=== PATIENT | male | born 1960 | race Caucasian/White ===

== ENCOUNTER 2016-04-15 20:44 | Emergency (ER) | payer OTHER ==
[2016-04-15] MEDS ORDERED: PROPARACAINE 0.5% 15 ML OPHT DROP OP ONE (21:00)
[2016-04-15] MEDS ORDERED: FLUORESCEIN SODIUM 1 MG STRIP OP ONE ×2 (21:00→21:16)
[2016-04-15] MEDS ORDERED: OFLOXACIN 0.3% SOLN PREPACK OPHT.BTL TAKEHOME ONE (21:29)
--- NOTE | 2016-04-15 21:29 | EDPHY ---
H & P Time Seen by Provider: 04/15/16 20:59 HPI/ROS: CHIEF COMPLAINT: Right eye injury HISTORY OF PRESENT ILLNESS: 56-year-old male history of PRK surgery approximately [address] Familia Carrasco with walking this evening and impacted a branch. He is complaining of acute right eye pain. No visual acuity changes that he has significant pain with opening of his eye. PHYSICAL EXAM (Prior to examination, patient consented to physical exam, hands were washed and my usual and customary physical exam procedures followed) 1) GENERAL: Well-developed, well-nourished, alert and oriented.Appears uncomfortable guarding right eye 2) HEAD: Normocephalic 3) HEENT: sclera anicteric 4) LUNGS: Breathing comfortably. 5) OCULAR EXAM: Visual Acuity: noted from Nurse's notes., right eye 20/40 after Alcaine instillation patient notes resolution of symptoms Pupils:equal round and reactive to light EOMI Lids: no edema or swelling, upper and lower lids were everted and no foreign bodies were visualized, no areas of increased fluorescein uptake. Skin: no proptosis, no periorbital erythema or swelling, no vesicles, no pain with extraocular movements. Conjunctivae: not injected, no discharge, negative Laureano test. Cornea: [exam with fluorescein shows area of increased uptake between the 7 in 10 o'clock position of the cornea consistent with abrasion. For comparison purposes the left eye was stained as well and has no areas of increased uptake. Anterior chamber:[normal, no hyphema or hypopyon Smoking Status: Never smoked Constitutional: Initial Vital Signs Temperature (C) 36.5 C 04/15/16 20:51 Heart Rate 66 04/15/16 20:51 Respiratory Rate 20 04/15/16 20:51 Blood Pressure 138/96 H 04/15/16 20:51 O2 Sat (%) 96 04/15/16 20:51 O2 Delivery Mode Room Air Allergies/Adverse Reactions: morphine Allergy (Verified 04/15/16 20:51) Home Medications: Medication Instructions Recorded Lisinopril 04/15/16 Ofloxacin 0.3% [Ocuflox 0.3%] 2 drops EACHEYE QID #1 opht.btl 04/15/16 oxyCODONE/APAP 5/325 [Percocet 1 tab PO Q6 #10 tab 04/15/16 5325] ED Images - Head Eyes Right/Left: 1 - abrasion MDM/Departure - MDM Medications Given: Discontinued Medications Fluorescein Sodium ([id number]) 1 mg OP EDNOW ONE Stop: 04/15/16 21:01 Last Admin: 04/15/16 21:07 Dose: 1 mg Proparacaine HCl (Alcaine 0.5%) 1 drops OP EDNOW ONE Stop: 04/15/16 21:01 Last Admin: 04/15/16 21:07 Dose: 1 drop ED Course/Re-evaluation: This patient feels significantly improved after instillation of Alcaine. Today is Saturday. I paged the patient's dye boarding machine operator Dr. Familia Carrasco however no response at 9:54 p.m.. I am starting the patient Ocuflox. Recommend he follow up with Dr. Familia Carrasco in the morning. Discharged with analgesia which he states he is able to tolerate. - Depart Disposition: Home, Routine, Self-Care Clinical Impression: Right corneal abrasion Qualifiers: Encounter type: initial encounter Qualifier Code: (S05.01XA) Injury of conjunctiva and corneal abrasion without foreign body, right eye, initial encounter Condition: Good Instructions: Corneal Abrasion (ED) Prescriptions: Ofloxacin 0.3% [Ocuflox 0.3%] 2 drops EACHEYE QID #1 opht.btl oxyCODONE/APAP 325 [Percocet 325] 1 tab PO Q6 #10 tab Referrals: Familia Carrasco MD [Medical Doctor] - 1 day without fail
[2016-04-15] MEDS ORDERED: OXYCODONE/APAP 5/325 TAB PO ONE (21:45)
[2016-04-15] MEDS ORDERED: OXYCODONE/APAP 5/325MG PREPACK#4 BTL TAKEHOME ONE (21:45)
[2016-04-15 22:03] VITALS: BP 114/78; PULSE 70; RESP 14; TEMP 97.9; O2SAT 94
== END 2016-04-15 22:02 | disposition home or self-care (01) ==
DX: S05.01XA Injury of conjunctiva and corneal abrasion without foreign body, right eye, initial encounter (principal); W22.8XXA Striking against or struck by other objects, initial encounter; Y99.8 Other external cause status; Y93.01 Activity, walking, marching and hiking

== ENCOUNTER 2017-04-15 07:31 | Emergency (ER) | payer OTHER ==
--- NOTE | 2017-04-15 08:05 | CPEKG ---
Heart Rate: 59 RR Interval: 1017 P-R Interval: 172 QRSD Interval: 100 QT Interval: 432 QTC Interval: 428 P [place]: 39 QRS [place]: -29 T Wave [place]: -20 EKG Severity - ABNORMAL ECG - EKG Impression: SINUS RHYTHM EKG Impression: BORDERLINE LEFT AXIS DEVIATION EKG Impression: ABNORMAL T, CONSIDER ISCHEMIA, INFERIOR LEADS Electronically Signed By: Triston Rossi 15-Apr-2017 08:11:41
[2017-04-15] MEDS ORDERED: ASPIRIN 81 MG CHEWABLE TAB PO ONE (08:11)
--- NOTE | 2017-04-15 08:11 | EDPHY ---
H & P Time Seen by Provider: 04/15/17 08:08 HPI/ROS: Chief complaint. Lightheaded HPI. 57-year-old male presents with complaint of being lightheaded and near syncopal. Symptoms started this morning. Worse with exertion while going for exercise this morning. No headache or change in vision. No chest discomfort or shortness of breath. Denies fever or cough. No abdominal pain vomiting or diarrhea. No leg symptoms. He had a stress test 4 years ago that was normal and he was not having any symptoms at that. He currently has active gout. ROS Constitutional. no fever/chills, no weakness Eyes. no problems with vision ENT. no sore throat, no nasal drainage Cardiovascular. no chest pain Respiratory. no shortness of breath, no cough Abdominal. no abdominal pain, no nausea/vomiting, no diarrhea . no problems urinating MS. Right great toe pain from gout Skin. no rash Lymph. no swollen glands Neuro. Light headed Past Medical/Surgical History: Past medical history dyslipidemia, hypertension, gout Denies early coronary artery disease in siblings or parents Social History: , nonsmoker, no alcohol Smoking Status: Never smoked Physical Exam: General Appearance: Alert well-developed male mild distress vital signs are stable Eyes: Pupils equal and round no pallor or injection. ENT, Mouth: Mucous membranes are moist. Respiratory: There are no retractions, lungs are clear to auscultation. Cardiovascular: Regular rate and rhythm. Gastrointestinal: Abdomen is soft and nontender, no masses, bowel sounds normal. Neurological: Awake and alert, sensory and motor exams grossly normal. Skin: Warm and dry, no rashes. Musculoskeletal: Neck is supple nontender. Extremities symmetrical, full range of motion. Redness and swelling at the MP joint right foot consistent with his gout Psychiatric: Patient is oriented X 3, there is no agitation. Constitutional: Initial Vital Signs Temperature (C) 36.5 C 04/15/17 07:34 Heart Rate 76 04/15/17 07:34 Respiratory Rate 16 04/15/17 07:34 Blood Pressure 140/90 H 04/15/17 07:34 O2 Sat (%) 97 04/15/17 07:34 O2 Delivery Mode Room Air Allergies/Adverse Reactions: morphine Allergy (Unknown, Verified 04/15/17 07:33) Home Medications: Medication Instructions Recorded Lisinopril 04/15/16 Allopurinol [Allopurinol 100 MG 100 mg PO DAILY 04/15/17 (*)] Indomethacin [Indocin 25 mg (*)] 25 mg PO 04/15/17 Medical Decision Making - Diagnostics EKG Interpretation: EKG interpreted by me shows normal sinus rhythm normal interval. Normal axis. QRS is normal T-wave inversion inferior leads. No significant ST elevation. No arrhythmia. The rate is 59 This EKG is not changed from previous EKG in 2008 that we obtained from Dr. Cruz is office Imaging Results: Imaging Impressions Chest X-Ray 04/15/17 08:12 Impression: 1. No acute pulmonary disease. 2. Consider chest two views when the patient's medical condition permits. One-view chest x-ray interpreted by me is normal Procedures: IV normal saline, monitor ED Course/Re-evaluation: Re-evaluation 9:05 a.m.. Patient is stable and feeling better. We have called Dr. Cruz is office to try to obtain an old EKG. 10:00 a.m. patient is re-evaluated. He is improved. He still has no chest discomfort or trouble breathing. He is neurologically intact. The patient, his , and I discussed laboratory, imaging, EKG findings. We discussed treatment plan including criteria for return and recommendation for follow-up and further evaluation. They expressed understanding and agreement Differential Diagnosis: I considered cardiac ischemia, electrolyte abnormality, neurologic findings including CVA. Blood work looks somewhat significant for dehydration. Possible med interaction with indomethacin, allopurinol that he is taking for his gout and his blood pressure medication - Data Points Laboratory Results: Laboratory Results 04/15/17 07:56 04/15/17 07:56 04/15/17 04/15/17 04/15/17 07:56 07:56 07:56 WBC 8.23 10^3/uL 10^3/uL (3.80-9.50) RBC 4.80 10^6/uL 10^6/uL (4.40-6.38) Hgb 14.7 g/dL g/dL (13.7-17.5) Hct 42.3 % % (40.0-51.0) MCV 88.1 fL fL (81.5-99.8) MCH 30.6 pg pg (27.9-34.1) MCHC 34.8 g/dL g/dL (32.4-36.7) RDW 12.6 % % (11.5-15.2) Plt Count 234 10^3/uL 10^3/uL (150-400) MPV 9.4 fL fL (8.7-11.7) Neut % (Auto) 71.0 % % (39.3-74.2) Lymph % (Auto) 16.2 % % (15.0-45.0) [place] % (Auto) 10.4 % % (4.5-13.0) Eos % (Auto) 1.5 % % (0.6-7.6) Baso % (Auto) 0.7 % % (0.3-1.7) Nucleat RBC Rel Count 0.0 % % (0.0-0.2) Absolute Neuts (auto) 5.84 10^3/uL 10^3/uL (1.70-6.50) Absolute Lymphs (auto) 1.33 10^3/uL 10^3/uL (1.00-3.00) Absolute Monos (auto) 0.86 10^3/uL H 10^3/uL (0.30-0.80) Absolute Eos (auto) 0.12 10^3/uL 10^3/uL (0.03-0.40) Absolute Basos (auto) 0.06 10^3/uL 10^3/uL (0.02-0.10) Absolute Nucleated RBC 0.00 10^3/uL 10^3/uL (0-0.01) Immature Gran % 0.2 % % (0.0-1.1) Immature Gran # 0.02 10^3/uL 10^3/uL (0.00-0.10) PT 13.3 SEC SEC (12.0-15.0) INR 0.99 (0.83-1.16) APTT 27.4 SEC SEC (23.0-38.0) Sodium 146 mEq/L H mEq/L (135-145) Potassium 5.1 mEq/L mEq/L (3.5-5.2) Chloride 108 mEq/L mEq/L (97-110) Carbon Dioxide 26 mEq/l mEq/l (22-31) Anion Gap 12 mEq/L mEq/L (8-16) BUN 20 mg/dL mg/dL (7-23) Creatinine 1.1 mg/dL mg/dL (0.7-1.3) Estimated GFR > 60 Glucose 114 mg/dL H mg/dL (70-100) Calcium 10.5 mg/dL H mg/dL (8.5-10.4) Troponin I < 0.012 ng/mL ng/mL (0.000-0.034) Medications Given: Discontinued Medications Aspirin (Aspirin) 324 mg PO EDNOW ONE Stop: 04/15/17 08:12 Last Admin: 04/15/17 08:31 Dose: 324 mg Departure - Departure Disposition: Home, Routine, Self-Care Clinical Impression: Lightheaded Condition: Good Instructions: Lightheadedness (ED) Additional Instructions: Drink plenty fluids and stay hydrated. Easy activity. Return for worsening symptoms. Follow up with Dr. Cruz in the next 1-2 days or when you return from your trip to [place]. Referrals: Dirk Cruz MD [Primary Care Provider] - 1-2 days without fail
[2017-04-15 08:17] LABS: PLATELET COUNT 234 10^3/uL (150-400)
[2017-04-15 08:27] LABS: INR 0.99 (0.83-1.16); PROTIME(PATIENT) 13.3 SEC (12.0-15.0)
[2017-04-15 09:59] VITALS: BP 121/84; PULSE 69; RESP 16; TEMP 97.7; O2SAT 96
== END 2017-04-15 10:34 | disposition home or self-care (01) ==
DX: R42 Dizziness and giddiness (principal); I10 Essential (primary) hypertension

== ENCOUNTER → 2018-07-22 | Outpatient (CLI) | payer OTHER ==
[~2018-07-22] MED LIST: IOPAMIDOL (ISOVUE-300) 100 ML BTL ONE
== END ==
LOC: FIMAGING 15:49
DX: Z01.818 Encounter for other preprocedural examination (principal)
CPT/HCPCS: Q9967